=== PATIENT | female | born 1965 | race Caucasian/White ===

== ENCOUNTER 2016-09-06 14:53 | Emergency (ER) | payer OTHER ==
[~2016-09-06] VITALS: Ht 172.7 cm; Wt 90.7 kg
[~2016-09-06 14:53] MED LIST: BOTOX200 U; FOLIC ACID1 M1 PO; HYDROXYZINE PAM25 MG PO; IMITREX50 M1 PO; METHOTREXA50 MG/2 ML PO; METHOTREXATE2.5 M2 PO; NORCO 325 MG-51 TAB PO; PANTOPRAZOLE SO40 MG PO; PERCOCET 325 MG1 TA2 PO; PREDNISONE10 MG PO; RIZATRIPTAN BEN10 MG PO; TRAMADOL HCL50 M1 PO; VALIUM5 M1 PO
--- NOTE | 2016-09-06 17:51 | ED SKIN/ALLERGY COMPLAINT ---
History of Present Illness General Chief Complaint: Laceration Procedure Stated Complaint: R HAND LAC Source: patient Exam Limitations: no limitations Vital Signs & Intake/Output Vital Signs & Intake/Output Vital Signs Date Time Temp Pulse Resp B/P Pulse O2 O2 Flow FiO2 Ox Delivery Rate 09/06 1459 97.3 71 18 126/75 97 Room Air Allergies Coded Allergies: Penicillins (ITCHY RASH 09/06/16) Sulfa (Sulfonamide Antibiotics) (TACHYCARDIA AND RASH 09/06/16) metronidazole (CARDIAC UNIT PER PT TACHYCARDIA AND A RASH 09/06/16) Reconcile Medications Folic Acid 1 MG TABLET 2 TAB PO DAILY SUPPLEMENT (Reported) Methotrexate 2.5 MG TABLET 9 TAB PO QSAT CONNECTIVE TISSUE UNDETERMINED ( Reported) Pantoprazole Sodium 40 MG TABLET.DR 1 TAB PO DAILY ACID REFLUX (Reported) Sumatriptan Succinate (Imitrex) 50 MG TABLET 1 TAB PO AD PRN MIGRAINES ( Reported) Tramadol HCl 50 MG TABLET 1 TAB PO PRN PAIN (Reported) Triage Note: STATES THAT SHE WENT TO CATCH A GLASS THAT WAS FALLING AND THAT IT BROKE AND CUT HER R HAND BETWEEN FINGERS, BLEEDING UNDER CONTROL PRIOR TO ARRIVAL. Triage Nurses Notes Reviewed? yes HPI: This patient is a 51-year-old female who presented to the emergency department today for evaluation of a laceration to her right hand. The patient reported that her cat was trying to hit a glass off the counter. She reported that she reached out to try to grab the glass, but shattered in her hand. She reported that she is having a little bit of pain, but when asked to quantify it reported, "it is not that much." No radiation of the pain. The pain is intermittent. Worse with movement of her hand or palpation to the wound. Better with keeping her hand still. The patient reported some numbness in her finger, but no tingling or loss of range of motion. No wrist pain. The patient is unsure of her last tetanus immunization. Past History Travel History Traveled to [place] past 21 day No Medical History Any Pertinent Medical History? see below for history Neurological: migraine EENT: NONE Cardiovascular: NONE Respiratory: NONE Gastrointestinal: NONE Hepatic: NONE Renal: NONE Musculoskeletal: NONE Psychiatric: NONE Endocrine: NONE Blood Disorders: autoimmune disease suspected psoriatic arthritis Cancer(s): NONE [employer] O[employer] WELL/Reproductive: NONE Surgical History Surgical History: cholecystectomy Psychosocial History What is your primary language Occitan Tobacco Use: Never used ETOH Use: denies use Illicit Drug Use: denies illicit drug use Family History Hx Contributory? No Review of Systems Review of Systems Constitutional: Reports: no symptoms. EENTM: Reports: no symptoms. Respiratory: Reports: no symptoms. Cardiovascular: Reports: no symptoms. GI: Reports: no symptoms. Musculoskeletal: Reports: no symptoms. Skin: Reports: see HPI. Neurological/Psychological: Reports: see HPI. All Other Systems: Reviewed and Negative Physical Exam Physical Exam General Appearance: well developed/nourished, no apparent distress, alert, awake Comments: Well-developed well-nourished person in no acute distress HEENT: Head normocephalic, moist mucous membranes Neck: Supple Back: Normal gait Respiratory: No respiratory distress. Speaking in full sentences Extremities: No edema, full range of motion Neuro: Alert and oriented x3 Psych: Mood affect normal, normal memory normal judgment. Skin: Warm and dry, no rash on exposed skin. Approximately 1.5 cm in length, linear laceration to the proximal aspect of the right third digit on the ventral side. Mild amount of active bleeding. Mildly tender to palpation. No surrounding erythema or edema. No foreign body appreciated in the wound site. Full range of motion of the digits. No evidence of tendon injury Progress Differential Diagnosis: abscess/cellulitis, skin laceration, skin tear, skin avulsion, skin abrasion, tendon injury Plan of Care: This patient is a 51-year-old female who presented to the emergency department today for evaluation of a laceration to her right third digit. 2 sutures were placed. The patient tolerated the procedure well. Discussed with the patient that she is to return in 10-14 days for a wound check and suture removal. She discussed that she may go to see her primary care physician for removal the sutures as well. Explained her the importance of returning for any signs of infection. Stable for discharge home. Departure Departure Disposition: HOME OR SELF CARE Condition: Stable Clinical Impression Primary Impression: Laceration Referrals: JASPER KIM,DHRUV Ardon (PCP/Family) Additional Instructions: Please keep the wound site clean and dry. You may take [id number] Tylenol or Motrin for pain. Please return to the emergency department in 10-14 days for a wound check and suture removal. Return to the emergency department sooner for any signs of infection such as pus drainage from the wound site, fevers, chills, spreading of redness around the wound site, or for any other concerns. Departure Forms: Customer Survey General Discharge Information Procedures Laceration/Wound Repair Laceration/Wound Repair: Wound Location: upper extremity (right third digit) Wound's Depth, Shape: linear, subcutaneous Wound Length (cm): 1.5 Wound Explored: irrigated extensively Irrigated w/ Saline (ccs): 500 Betadine Prep? Yes Anesthesia: 1% lidocaine Volume Anesthetic (ccs): 2 Wound Repaired With: sutures Suture Size/Type: 4:0 Number of Sutures: 2 Layer Closure? No Sterile Dressing Applied: Yes Splint Applied? No Tetanus Status: up to date Progress: Patient tolerated the procedure well
[2016-09-06 18:28] VITALS: BP 128/74
== END 2016-09-06 18:30 ==
LOC: ERH 14:53
DX: S61.212A Laceration without foreign body of right middle finger without damage to nail, initial encounter (principal); W25.XXXA Contact with sharp glass, initial encounter
CPT/HCPCS: 90471; 90714